=== PATIENT | male | born 1950 | race Caucasian/White ===

== ENCOUNTER → 2019-07-14 | Outpatient (CLI) | payer OTHER | END | disposition home or self-care (01) | LOC: RAH 12:40 | PROVIDERS: ATTEND Internal Medicine Cardiovascular Disease | DX: Z13.6 Encounter for screening for cardiovascular disorders (principal); I71.2 Thoracic aortic aneurysm, without rupture; I48.0 Paroxysmal atrial fibrillation | CPT/HCPCS: 75571 ==